=== PATIENT | female | born 1990 | race Caucasian/White ===

== ENCOUNTER 2016-08-22 10:04 | Emergency (ER) | payer OTHER ==
--- NOTE | 2016-08-22 10:22 | EDPHY ---
H & P Stated Complaint: MIGRAINE X 1 DAY Time Seen by Provider: 08/22/16 10:21 HPI/ROS: CHIEF COMPLAINT: Recurrent migraine headache HISTORY OF PRESENT ILLNESS: The patient presents to the ED with a recurrent severe migraine headache that began yesterday in the evening. She reports associated photophobia and nausea. She denies fever or neck pain. The patient has no complaints of focal numbness or weakness. The patient did recently undergo a bunionectomy. She had been on narcotic medications until 4 days ago. The patient states that she typically gets a migraine headache approximately once a month. She is on no abortive therapies at home. REVIEW OF SYSTEMS: A comprehensive 10 point review of systems is otherwise negative aside from elements mentioned in the history of present illness. Source: Patient Exam Limitations: No limitations - Personal History LMP (Females 10-55): 8-14 Days Ago Tetanus Vaccine Date: < 10 YEARS - Medical/Surgical History Hx Asthma: Yes Hx Chronic Respiratory Disease: No Hx Diabetes: No Hx Cardiac Disease: No Hx Renal Disease: No Hx Cirrhosis: No Hx Alcoholism: No Hx HIV/AIDS: No Hx Splenectomy or Spleen Trauma: No Other PMH: kayla danlos, shoulder surg 06/27. gi issues, sports induced asthma, MIGRAINES, LEFT FOOT SURGERY - Social History Smoking Status: Never smoked - Physical Exam Exam: General Appearance: Alert, mild discomfort secondary to pain Eyes: Pupils equal and round no pallor or injection ENT, Mouth: Mucous membranes moist Respiratory: There are no retractions, lungs are clear to auscultation Cardiovascular: Regular rate and rhythm Gastrointestinal: Abdomen is soft and nontender, no masses, bowel sounds normal Neurological: A&O, normal motor function, normal sensory exam, normal cranial nerves Skin: Warm and dry, no rashes Musculoskeletal: Neck is supple nontender, no meningeal symptoms Extremities: symmetrical, full range of motion Psychiatric: Patient is oriented X 3, there is no agitation Constitutional: Initial Vital Signs Temperature (C) 36.9 C 08/22/16 10:16 Heart Rate 104 H 08/22/16 10:16 Respiratory Rate 15 08/22/16 10:16 Blood Pressure 111/75 08/22/16 10:16 O2 Sat (%) 95 08/22/16 10:16 O2 Delivery Mode Room Air Allergies/Adverse Reactions: No Known Allergies Allergy (Verified 05/02/16 08:27) Home Medications: Medication Instructions Recorded Promethazine HCl [Phenergan 25mg 25 mg PO Q6 PRN #10 tab 08/22/16 (*)] Medical Decision Making ED Course/Re-evaluation: I reviewed the patient's past medical records. The patient presents to the ED with a fairly significant recurrent migraine headache. The headache is typical of her migraines. There is no clinical evidence of meningitis. The patient had an IV established. The patient received IV Benadryl, Decadron and Reglan. The patient is noted to be neurologically intact. Re-evaluated the patient at 12:00 p.m.: She reports her headache has improved. She currently rates it as a 3/10. 30 mg of IV Toradol have been ordered. The patient remains neurologically intact. 12:30 p.m.: Headache is entirely resolved. Patient will be discharged home. She is given the contact number of our on-call neurologist to schedule a follow- up appointment with. She is given customary return precautions. The patient will be given a prescription for Phenergan tablets. Differential Diagnosis: Differential diagnosis considered in no particular order includes migraine headache, meningitis, tension headache - Data Points Medications Given: Discontinued Medications Dexamethasone (Decadron Injection) 10 mg IVP EDNOW ONE Stop: 08/22/16 10:24 Last Admin: 08/22/16 10:34 Dose: 10 mg Diphenhydramine HCl (Benadryl Injection) 50 mg IVP EDNOW ONE Stop: 08/22/16 10:24 Last Admin: 08/22/16 10:34 Dose: 50 mg Ketorolac Tromethamine (Toradol) 30 mg IVP EDNOW ONE Stop: 08/22/16 11:52 Last Admin: 08/22/16 11:55 Dose: 30 mg Metoclopramide HCl (Reglan Injection) 10 mg IVP EDNOW ONE Stop: 08/22/16 10:24 Last Admin: 08/22/16 10:34 Dose: 10 mg Departure - Departure Disposition: Home, Routine, Self-Care Clinical Impression: Migraine headache Condition: Good Instructions: Acute Headache (ED) Additional Instructions: 1. The event of a recurrent migraine, take 600 mg ibuprofen and 25 mg of Phenergan. 2. Please schedule a follow-up appointment with a neurologist you have been referred to for further evaluation of your migraine syndrome. New medications at home may be indicated to help you abort migraines in the future. Referrals: Augustine Pineda MD [Medical Doctor] - As per Instructions Prescriptions: Promethazine HCl [Phenergan 25mg (*)] 25 mg PO Q6 PRN #10 tab PRN Reason: for headache or nausea
[2016-08-22] MEDS ORDERED: METOCLOPRAMIDE 10 MG/2 ML VIAL IVP ONE (10:23)
[2016-08-22] MEDS ORDERED: DEXAMETHASONE 10 MG/ML VIAL IVP ONE (10:23)
[2016-08-22] MEDS ORDERED: KETOROLAC 30 MG/1 ML SDV IVP ONE (11:51)
[2016-08-22 11:55] VITALS: RESP 16; O2SAT 98
[2016-08-22 12:34] VITALS: BP 106/64; PULSE 62; TEMP 97.7
== END 2016-08-22 12:33 | disposition home or self-care (01) ==
DX: G43.909 Migraine, unspecified, not intractable, without status migrainosus (principal); J45.909 Unspecified asthma, uncomplicated
CPT/HCPCS: 96374; J1200; J1885; J2765

== ENCOUNTER 2016-12-29 21:57 | Emergency (ER) | payer OTHER ==
[2016-12-29 22:02] VITALS: RESP 16; O2SAT 95
[2016-12-29] MEDS ORDERED: ONDANSETRON DISINTEGRATING 4 MG TAB PO ONE (22:04)
[2016-12-29] MEDS ORDERED: HALOPERIDOL LACT 5 MG/ML INJ IVP ONE (22:58)
[2016-12-29] MEDS ORDERED: KETOROLAC 15 MG/1 ML SDV IVP ONE (22:58)
[2016-12-29] MEDS ORDERED: DEXAMETHASONE 10 MG/ML VIAL IVP ONE (22:58)
[2016-12-29] MEDS ORDERED: NS 1,000 ML IV ONE (22:59)
--- NOTE | 2016-12-29 22:59 | EDPHY ---
H & P Stated Complaint: c/o migraine watt x 3 hrs, intermittent n/v Time Seen by Provider: 12/29/16 22:50 HPI/ROS: Chief Complaint: Migraine headache HPI: 26-year-old woman past medical history migraine headaches presenting with atypical migraine which started about 6 o'clock this evening. She took some Phenergan without any relief. Pain now is a 10/10. It was gradual in onset. He she had her usual aura. She does have known triggers of caffeine, some light and some green vegetables. No fevers or chills. Has had multiple episodes of vomiting. No neck pain or stiffness. This is not the worst headache of her life. ROS: 10 point Review of Systems is negative except as noted in the HPI. PMH: Migraine headaches, Nix Danlos syndrome Medications: Phenergan p.r.n. Allergies: No known drug allergies Social History: No smoking, occasional alcohol, no recreational drug use Family History: non-contributory Physical Exam: Gen: Awake, Alert, No Distress HEENT: Nose: no rhinorrhea Eyes: PERRLA, EOMI Mouth: Moist mucosa Neck: Supple, no JVD Chest: nontender, lungs clear to auscultation Heart: S1, S2 normal, no murmur Abd: Soft, non-tender, no guarding Back: no CVA tenderness, no midline tenderness Ext: no edema, non-tender Skin: no rash Neuro: CN II-XII intact, Sensation grossly intact, Strength 5/5 in bilateral upper and lower extremities - Personal History Tetanus Vaccine Date: < 10 YEARS - Medical/Surgical History Hx Asthma: Yes Hx Chronic Respiratory Disease: No Hx Diabetes: No Hx Cardiac Disease: No Hx Renal Disease: No Hx Cirrhosis: No Hx Alcoholism: No Hx HIV/AIDS: No Hx Splenectomy or Spleen Trauma: No Other PMH: kayla danlos, shoulder surg 06/27. gi issues, sports induced asthma, MIGRAINES, LEFT FOOT SURGERY - Social History Smoking Status: Never smoked Constitutional: Initial Vital Signs Temperature (C) 36.6 C 12/29/16 22:00 Heart Rate 87 12/29/16 22:00 Respiratory Rate 16 12/29/16 22:00 Blood Pressure 112/89 H 12/29/16 22:00 O2 Sat (%) 95 12/29/16 22:00 O2 Delivery Mode Room Air Allergies/Adverse Reactions: No Known Allergies Allergy (Verified 12/29/16 22:02) Home Medications: Medication Instructions Recorded Promethazine HCl [Phenergan 25mg 25 mg PO Q6 PRN #10 tab 08/22/16 (*)] Medical Decision Making ED Course/Re-evaluation: 2348 patient's pain is significantly improved. Is done with 4 to 5/10. No further nausea or vomiting. She is asking to go home. Symptoms consistent with migraine headache. There are no red flags to suggest another acute intracranial process at this time such as infection or bleed. - Data Points Medications Given: Discontinued Medications Dexamethasone (Decadron Injection) 10 mg IVP EDNOW ONE Stop: 12/29/16 22:59 Last Admin: 12/29/16 23:20 Dose: 10 mg Diphenhydramine HCl (Benadryl Injection) 50 mg IVP EDNOW ONE Stop: 12/29/16 22:59 Last Admin: 12/29/16 23:18 Dose: 50 mg Haloperidol Lactate (Haldol Injection) 2.5 mg IVP EDNOW ONE Stop: 12/29/16 22:59 Last Admin: 12/29/16 23:22 Dose: 2.5 mg Sodium Chloride (Ns) 1,000 mls @ 0 mls/hr IV ONCE ONE PRN Reason: Wide Open Stop: 12/29/16 23:00 Last Admin: 12/29/16 23:10 Dose: 1,000 mls Ketorolac Tromethamine (Toradol) 15 mg IVP EDNOW ONE Stop: 12/29/16 22:59 Last Admin: 12/29/16 23:20 Dose: 15 mg Ondansetron HCl (Zofran Odt) 4 mg PO EDNOW ONE Stop: 12/29/16 22:05 Last Admin: 12/29/16 22:05 Dose: 4 mg Departure - Departure Disposition: Home, Routine, Self-Care Clinical Impression: Migraine headache Condition: Good Instructions: Migraine Headache (ED) Additional Instructions: Follow up with primary care physician in 3-4 days for re-evaluation. Return emergency depart for increasing headache, fevers, chills, nausea, vomiting, or any other concerns. Referrals: Jose Antonio Mcdaniels [Doctor of Osteopathy] - As per Instructions
[2016-12-30 00:39] VITALS: BP 106/57; PULSE 65; TEMP 98.4
== END 2016-12-30 00:20 | disposition home or self-care (01) ==
DX: G43.909 Migraine, unspecified, not intractable, without status migrainosus (principal); J45.909 Unspecified asthma, uncomplicated; R11.10 Vomiting, unspecified
CPT/HCPCS: 96374; J1100; J1200; J1885